=== PATIENT | female | born 1985 | race African-American/Black ===

== ENCOUNTER 2018-06-15 15:20 | Emergency (ER) | payer SELFPAY ==
[~2018-06-15] VITALS: Ht 170.2 cm; Wt 73.0 kg
[2018-06-15 15:25] VITALS: BP 116/57
== END 2018-06-15 22:33 | disposition left against medical advice (07) ==
LOC: ER 15:51
DX: F41.9 Anxiety disorder, unspecified (principal); Z53.21 Procedure and treatment not carried out due to patient leaving prior to being seen by health care provider